=== PATIENT | female | born 1970 | race Two or more races ===

== ENCOUNTER 2017-08-17 08:34 | Emergency (ER) | payer OTHER ==
[2017-08-17 09:25] LABS: URINE BLOOD (Dip) POC Negative (NEGATIVE); URINE GLUCOSE (Dip) POC Negative (NEGATIVE); URINE KETONES (Dip) POC Negative (NEGATIVE); URINE LEUKOCYTE EST (Dip) POC Trace (NEGATIVE); URINE NITRITE (Dip) POC Negative (NEGATIVE); URINE TOTAL PROTEIN POC Trace (NEGATIVE)
[2017-08-17] MEDS: KETOROLAC 30 MG INJ IM (09:59)
== END 2017-08-17 10:35 | disposition home or self-care (01) ==
LOC: FTE 08:34
DX: R51 Headache (principal)
CPT/HCPCS: 70450; 81003; 96372; 99285-25

== ENCOUNTER 2018-10-23 08:11 | Emergency (ER) | payer OTHER ==
[2018-10-23] MEDS: IBUPROFEN 600 MG TAB PO (09:03)
== END 2018-10-23 12:17 | disposition home or self-care (01) ==
LOC: FTE 08:11
DX: K64.4 Residual hemorrhoidal skin tags (principal)
CPT/HCPCS: 99284; Z7502

== ENCOUNTER 2019-01-28 12:09 | Day surgery (SDC) | payer OTHER ==
[2019-01-28] MEDS ORDERED: LIDOCAINE 2% (SDV) 5 ML INJ (13:09)
[2019-01-28] MEDS ORDERED: PROPOFOL 200 MG INJ (13:09)
== END 2019-01-28 14:18 | disposition home or self-care (01) ==
LOC: GIL 12:09
DX: Z12.11 Encounter for screening for malignant neoplasm of colon (principal); K64.4 Residual hemorrhoidal skin tags; D12.0 Benign neoplasm of cecum; K92.1 Melena
CPT/HCPCS: 45380; 84703; 88305